=== PATIENT | female | born 1975 | race Caucasian/White ===

== ENCOUNTER 2020-04-19 02:26 | Emergency (ER) | payer MEDICAID ==
[~2020-04-19] VITALS: Ht 157.5 cm; Wt 65.8 kg
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
[2020-04-19 02:30] VITALS: BP 110/72
--- NOTE | 2020-04-19 02:35 | NUR ---
ED Nurse Note: [employer] at bedside
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
[2020-04-19 03:45] VITALS: BP 112/80
--- NOTE | 2020-04-19 03:45 | NUR ---
ER DISCHARGE NOTE: Patient is cleared to be discharged per ERMD, pt is aox4, on room air, with stable vital signs. pt was given dc instructions, pt was able to verbalize understanding, pt id band removed. pt is able to ambulate with steady gait. pt took all belongings. pt discharged with [employer] to be taken home to her board and care. pt stable upon discharge.
--- NOTE | 2020-04-19 11:19 | Diagnostic Imaging Report ---
EXAM: X-RAY XRAY Pelvis 1v CLINICAL HISTORY: Abdominal pain. Evaluate for foreign body.. COMPARISON: None FINDINGS: Frontal view of the pelvis obtained. Alignment is anatomic. Severe degenerative changes of the right hip noted. There is a metallic clip in the right hemipelvis perhaps a dropped clip from prior cholecystectomy. There are multiple phleboliths. No radiopaque foreign body seen. Surrounding soft tissue is normal. IMPRESSION: NO RADIOPAQUE FOREIGN BODY SEEN. SEVERE DEGENERATIVE CHANGES OF THE RIGHT HIP.
== END 2020-04-19 03:45 | disposition home or self-care (01) ==
LOC: EDBD 02:26 → EMR 02:53
DX: T76.21XA Adult sexual abuse, suspected, initial encounter (principal); X58.XXXA Exposure to other specified factors, initial encounter; Y92.9 Unspecified place or not applicable; F20.9 Schizophrenia, unspecified; F31.9 Bipolar disorder, unspecified; Z88.0 Allergy status to penicillin; Z88.8 Allergy status to other drugs, medicaments and biological substances; Z90.49 Acquired absence of other specified parts of digestive tract; I87.8 Other specified disorders of veins
CPT/HCPCS: 72170; Z7502; 99283

== ENCOUNTER 2020-05-06 08:22 | Emergency (ER) | payer MEDICAID ==
[~2020-05-06] VITALS: Ht 167.6 cm; Wt 77.1 kg
[2020-05-06 08:16] VITALS: BP 127/80
[2020-05-06] MEDS ORDERED: Omnipaque-300 100ml vial INJ PRN (08:30)
[2020-05-06] MEDS ORDERED: Morphine Sulfate 2mg/ml Inj(IV/IM USE ONLY) IVP ONE (08:30)
[2020-05-06 08:47] LABS: APPEARANCE,URINE CLEAR; BASOPHILS % (AUTO) 1.1 % (0.0-2.0); BILIRUBIN, URINE NEGATIVE (NEGATIVE); COLOR,URINE PALE YELLOW; EOSINOPHILS % (AUTO) 4.3 % (0.0-3.0); GLUCOSE, URINE (UA) NEGATIVE (NEGATIVE); HEMATOCRIT 44.1 % (37.0-47.0); HEMOGLOBIN 14.2 G/DL (12.0-16.0); KETONES,URINE NEGATIVE (NEGATIVE); LEUKOCYTE ESTERASE ,URINE 1+ (NEGATIVE); LYMPHOCYTES % (AUTO) 36.3 % (20.0-45.0); MEAN CORPUSCULAR VOLUME 77 FL (80-99); MONOCYTES % (AUTO) 4.2 % (1.0-10.0); NEUTROPHILS % (AUTO) 54.1 % (45.0-75.0); NITRITE,URINE NEGATIVE (NEGATIVE); PH,URINE 7 (4.5-8.0); PLATELET COUNT 437 K/UL (150-450); PROTEIN,URINE NEGATIVE (NEGATIVE); RED BLOOD COUNT 5.71 M/UL (4.20-5.40); RED CELL DISTRIBUTION WIDTH 13.7 % (11.6-14.8); UROBILINOGEN,URINE NORMAL MG/DL (0.0-1.0); WHITE BLOOD COUNT 13.4 K/UL (4.8-10.8)
[2020-05-06 08:56] LABS: CALCIUM 9.3 MG/DL (8.5-10.1); CREATININE 1.1 MG/DL (0.55-1.30); POTASSIUM 3.2 MMOL/L (3.5-5.1)
[2020-05-06 09:01] LABS: ALBUMIN 3.8 G/DL (3.4-5.0); ALBUMIN/GLOBULIN RATIO 0.9 (1.0-2.7); BILIRUBIN,TOTAL 0.2 MG/DL (0.2-1.0)
--- NOTE | 2020-05-06 10:13 | Diagnostic Imaging Report ---
EXAM: CT CT Abdomen Pelvis w/Contrast INDICATION: Reason For Exam: ABD PAIN. COMPARISON: None TECHNIQUE: Axial images were obtained through the abdomen pelvis with intravenous contrast. Sagittal and coronal reformats are generated. All CT scans at this facility are performed using dose modulation techniques as appropriate to a performed exam including the following: automated exposure control with adjustment of the mA and/or kV according to patient size. RADIATION DOSE: CTDIvol: 6.7 mGy DLP: 368.3 mGy-cm Dose information generated by the CT scanner is available in PACS. FINDINGS: Some mild atelectasis noted in the lung bases. The liver and spleen are homogeneous. Gallbladder is absent. The pancreas is unremarkable. Adrenals are normal in morphology. The kidneys are normal in size, shape and axis. There are some scattered fluid-filled small bowel loops noted. No transition point seen. There is also fluid and stool lucencies noted in the colon. The appendix is normal. There is no free fluid or free air. No pathologic adenopathy demonstrated. Urinary bladder appears unremarkable. Severe degenerative changes of the right hip noted. IMPRESSION: SCATTERED FLUID-FILLED SMALL BOWEL AND FLUID ALSO NOTED IN THE COLON. QUESTION UNDERLYING DIARRHEAL DISEASE AND ENTERITIS. STATUS POST CHOLECYSTECTOMY. SEVERE DEGENERATIVE CHANGES OF THE RIGHT HIP.
[2020-05-06] MEDS ORDERED: ONDANSETRON ODT4 MG BC (11:19)
[2020-05-06] MEDS ORDERED: DICYCLOMINE HCL10 MG ORAL (11:19)
[2020-05-06] MEDS ORDERED: FAMOTIDINE20 MG ORAL (11:19)
[2020-05-06 11:35] VITALS: BP 120/76
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
== END 2020-05-06 11:35 | disposition home or self-care (01) ==
LOC: EDBD 08:22 → EMR 08:45
DX: K52.9 Noninfective gastroenteritis and colitis, unspecified (principal); Z88.0 Allergy status to penicillin; E11.9 Type 2 diabetes mellitus without complications; Z88.8 Allergy status to other drugs, medicaments and biological substances; D72.829 Elevated white blood cell count, unspecified; Z90.49 Acquired absence of other specified parts of digestive tract; J98.11 Atelectasis
CPT/HCPCS: 36415; 74177; 80053; 81003; 81025; 83690; 85025; 96374; J2270; Q9965; Z7502; 99284

== ENCOUNTER 2020-08-02 12:10 | Emergency (ER) | payer MEDICAID, OTHER ==
[~2020-08-02] VITALS: Ht 162.6 cm; Wt 68.0 kg
[~2020-08-02 12:10] MED LIST: DICYCLOMINE HCL10 MG ORAL; FAMOTIDINE20 MG ORAL; ONDANSETRON ODT4 MG BC
--- NOTE | 2020-08-02 12:12 | NUR ---
ED Nurse Note: Pt BIBA [id number] for headache 4/10 pain for 2 days. Pt has psych history. Per ambulance, pt thinks she might be as well, but had menstruation this past week. Pt is alert and orientedx4, discheveled, mumbling to self.
[2020-08-02 12:13] VITALS: BP 132/76
[2020-08-02] MEDS ORDERED: Acetaminophen 500mg (ES) tab ORAL ONE (13:00)
--- NOTE | 2020-08-02 13:02 | Emergency Room Report ---
History of Present Illness General Chief Complaint: Headache Source: Patient Present Illness HPI Pt. presents to the ED c/o headache x 1 day described as progressive dull diffuse pain. Patient denies neck pain or stiffness. She denies photophobia, nausea, vomiting, fevers or chills. Patient denies history of migraines. Patient denies visual changes or dizziness. She denies chest pain or palpitations. She denies urinary symptoms such as urinary frequency, urgency or hematuria. Patient habitually changes her story initially was saying she thought she might be , and later denies ever having a suspicion of that. She reports she takes Haldol she states she is staying out of boarding care and they are in charge of giving her medications. She states she is not sure whether or not she missed any doses. She denies SI or HI. She denies hallucinations or manic episodes. Allergies: Coded Allergies: BENZTROPINE (Verified Allergy, Unknown, 04/19/20) NITROGLYCERIN (Verified Allergy, Unknown, 04/19/20) PENICILLINS (Verified Allergy, Unknown, 04/19/20) COVID-19 Screening Contact w/high risk pt: No Experienced COVID-19 symptoms?: No COVID-19 Testing performed COMPUTER SYSTEMS ADMINISTRATOR: No Patient History Past Medical History: see triage record Past Surgical History: none Pertinent Family History: none Last Menstrual Period: 1.17 Reviewed Nursing Documentation: PMH: Agreed; PSxH: Agreed Nursing Documentation-PMH Past Medical History: No History, Except For Hx Asthma: Yes Hx Diabetes: Yes Hx Cancer: Yes - LEUKEMIA Review of Systems All Other Systems: negative except mentioned in HPI Physical Exam Vital Signs Date Time Temp Pulse Resp B/P (MAP) Pulse Ox O2 Delivery O2 Flow Rate FiO2 08/02/20 12:04 98.1 88 1 135/80 (98) 99 Room Air Sp02 EP Interpretation: reviewed, normal General Appearance: no apparent distress, alert, GCS 15, non-toxic, other - Somewhat disheveled. Head: normocephalic, atraumatic Eyes: bilateral eye normal inspection, bilateral eye PERRL, bilateral eye other - no photophobia ENT: hearing grossly normal, EOM grossly intact, normal voice Neck: full range of motion, no meningismus Respiratory: chest non-tender, lungs clear, normal breath sounds, no wheezing, speaking full sentences Cardiovascular #1: regular rate, rhythm, no edema Cardiovascular #2: 0 carotid (R), 0 carotid (L), 0 radial (R), 0 radial (L), 0 femoral (R), 0 femoral (L), 0 dorsalis pedis (R), 0 dorsalis pedis (L) Gastrointestinal: non tender, soft Genitourinary: normal inspection, no CVA tenderness Musculoskeletal: normal range of motion, gait/station normal, non-tender Neurologic: alert, motor strength/tone normal, oriented x3, sensory intact, cerebellar normal, responsive, speech normal, normal gait, grossly normal, no focal defects Psychiatric: judgement/insight normal, other - flattened affect Skin: no rash, normal color Medical Decision Making PA Attestation Dr. Holloway is my supervising Physician whom patient management has been discussed with. Diagnostic Impression: Primary Impression: Headache Qualified Codes: R51.9 - Headache, unspecified ER Course Pt. presents to the ED c/o headache x 1 day described as progressive dull diffuse pain. Patient denies neck pain or stiffness. She denies photophobia, nausea, vomiting, fevers or chills. Patient denies history of migraines. Patient denies visual changes or dizziness. She denies chest pain or palpitations. She denies urinary symptoms such as urinary frequency, urgency or hematuria. Patient habitually changes her story initially was saying she thought she might be , and later denies ever having a suspicion of that. She reports she takes Haldol she states she is staying out of boarding care and they are in charge of giving her medications. She states she is not sure whether or not she missed any doses. She denies SI or HI. She denies hallucinations or manic episodes. Ddx considered but are not limited to migraine, SAH, Pseudomotor Cerebri,, Mass lesion, Cluster GAMING, Tension GAMING, Post lumbar puncture GAMING, behavioral/psychologica l disorder just to name a few. Vital signs: are WNL, pt. is afebrile H&PE are most consistent with generalized headache without focal neurological defect. No meningismus ORDERS: - UA: Pt. refused -Urine hcg: Pt. refused. ED INTERVENTIONS: - Tylenol PO Upon reevaluation the patient reports that her headache has resolved. Patient still has not provided urine and she reports that she does not want to have her urine tested. Patient is requesting to go home now. DISCHARGE: At this time pt. is stable for d/c to home. Will provide printed patient care instructions, and any necessary prescriptions. Care plan and follow up instructions have been discussed with the patient prior to discharge. Last Vital Signs Date Time Temp Pulse Resp B/P (MAP) Pulse Ox O2 Delivery O2 Flow Rate FiO2 08/02/20 12:13 98.1 85 17 132/76 98 Room Air Status: improved Disposition: HOME, SELF-CARE Condition: Stable Scripts Acetaminophen* (TYLENOL EXTRA STRENGTH*) 500 Mg Tablet 500 MG ORAL Q6H, #30 TAB 0 Refills Prov: Lluvia Lomeli 08/02/20 Referrals: [facility] Patient Instructions: General Headache Without Cause Additional Instructions: Take all medications as directed. Follow up with a Primary Care Provider in 3-5 days, even if your symptoms have resolved. --Please review list of primary care clinics, if you do not already have a primary care provider Return sooner to ED if new symptoms occur, or current symptoms become worse. - Please note that this Emergency Department Report was dictated using [employer] naturalvalet attendant technology software, occasionally this can lead to erroneous entry secondary to interpretation by the dictation equipment. Lluvia Lomeli Aug 02, 2020 13:02
[2020-08-02] MEDS ORDERED: TYLENOL EXTRA500 MG ORAL (14:45)
[2020-08-02 15:35] VITALS: BP 134/79
[2020-08-02 16:39] VITALS: BP 130/77
--- NOTE | 2020-08-02 16:39 | NUR ---
ER DISCHARGE NOTE: Patient is cleared to be discharged per ERMD, pt is aox4, on room air, with stable vital signs. pt was given dc and prescription instructions, pt was able to verbalize understanding, pt id band removed. pt is able to ambulate with steady gait. pt took all belongings.
== END 2020-08-02 16:40 | disposition home or self-care (01) ==
LOC: EDBD 12:10 → EMR 13:05
DX: R51.9 Headache, unspecified (principal); Z88.0 Allergy status to penicillin; Z88.8 Allergy status to other drugs, medicaments and biological substances; E11.9 Type 2 diabetes mellitus without complications; Z85.6 Personal history of leukemia
CPT/HCPCS: 99282